=== PATIENT | male | born 1965 | race Caucasian/White ===

== ENCOUNTER 2021-01-05 16:32 | Emergency (ER) | payer SELFPAY ==
[2021-01-05 16:42] VITALS: BP 134/78; PULSE 89; RESP 21; TEMP 37.1; O2SAT 98; BMI 30.2
--- NOTE | 2021-01-05 16:42 | ECG_ITS ---
APPROVED REPORT Exam: Resting ECG HR:84 bpm ECG Measurements Heart Rate 84 AXES DE 152 P 62 QRSd 168 QRS -78 QT 464 T 83 QTc 548 Conclusion Electronic ventricular pacemaker Electronically signed by : Jama Logan MD 01/06/2021 09:46:19
--- NOTE | 2021-01-05 16:51 | XR_ITS ---
PROCEDURE INFORMATION: Exam: XR Chest Exam date and time: 01/05/2021 4:51 PM Age: 55 years old Clinical indication: Shortness of breath; Prior surgery; Additional info: Covid+ SOA TECHNIQUE: Imaging protocol: XR of the chest. Views: 1 view. COMPARISON: No relevant prior studies available. FINDINGS: Lungs: Streaky opacities in the bilateral midlung zones. Pleural spaces: Unremarkable. No pleural effusion. No pneumothorax. Heart/Mediastinum: Unremarkable. No cardiomegaly. Bones/joints: Unremarkable. IMPRESSION: Mild central pulmonary opacities compatible with infection
--- NOTE | 2021-01-05 17:04 | [facility].EDGENADL ---
ED Disposition Clinical Impression: Bronchitis due to COVID-19 virus Headache Qualifiers: Headache type: tension-type Headache chronicity pattern: acute headache Intractability: not intractable Qualified Code(s): G44.209 - Tension-type headache, unspecified, not intractable Disposition: Home, Self-Care Condition on Discharge: Good Instructions: DI for COVID-19 (Suspected or Confirmed ) Prescriptions: Albuterol Sulfate [Albuterol Sulfate Hfa] 2 puff IH Q4HP PRN #1 each PRN Reason: Wheezing Prescription Printed Doxycycline Hyclate [Doxycycline Hyclate 100mg Tablet] 100 mg PO Q12 #20 tab Prescription Printed Ibuprofen [Ibuprofen 800mg Tablet] 800 mg PO TIDP PRN #20 tab PRN Reason: Moderate Pain Prescription Printed Referrals: Preet Wilson MD [Primary Care Provider] - - Critical Care Critical Care Time: No Attestation: On 01/05/21, the high probability of a clinically significant, sudden or life threatening deterioration of the following system(s) required my full and direct attention, intervention and personal management. The time I documented below is in addition to time spent performing reported procedures but includes the following listed in this critical care notation. Medical Decision Making - Medical Records Medical records reviewed: Yes: I reviewed the patient's medical records. - Rip Inquiry Pt receiving controlled substance: No Vital Signs: 01/05/21 16:42 Temperature 98.7 F Temperature Source Oral Pulse Rate [Right Radial] 89 Respiratory Rate 21 Blood Pressure [Right Arm] 134/78 Blood Pressure Mean [Right Arm] 96 Blood Pressure Source [Right Arm] Automatic Cuff Blood Pressure Position [Right Arm] Sitting 02 Sat by Pulse Oximetry 98 Oxygen Delivery Method Room Air - Lab Data Lab Results 01/05/21 17:06: WBC 9.7, RBC 5.54, Hgb 17.6, Hct 49.7, MCV 89.7, MCH 31.8 H, MCHC 35.5 H, RDW 13.1, Plt Count 345, MPV 9.0, Neut % (Auto) 78.0, Lymph % (Auto) 14.9, [place] % (Auto) 5.1, Eos % (Auto) 0.3, Baso % (Auto) 1.7, Neut # (Auto) 7.5, Lymph # (Auto) 1.5, [place] # (Auto) 0.5, Eos # (Auto) 0.0, Baso # (Auto) 0.2 01/05/21 17:06: Sodium 134 L, Potassium 3.8, Chloride 98, Carbon Dioxide 25, Anion Gap 14.8, BUN 15, Creatinine 0.70, Estimated Creat Clear 155, Estimated GFR 117, Est GFR ( Amer) 141, Glucose 115 H, Calcium 8.2 L, Total Bilirubin 0.5, AST 55, ALT 31, Alkaline Phosphatase 105, Total Protein 6.8, Albumin 3.6, Globulin 3.2, Albumin/Globulin Ratio 1.1 Result diagrams: 01/05/21 17:06 01/05/21 17:06 Orders (Tests/Meds): ED MEDICATIONS Discontinued Medications Generic Name Dose Route Start Last Admin Trade Name Freq PRN Reason Stop Dose Admin Dexamethasone Sodium Phosphate 10 mg 01/05/21 16:57 01/05/21 17:16 Dexamethasone 4mg/Ml 5ml Mdv IV 01/05/21 16:58 10 mg ONCE ONE Administration Diphenhydramine HCl 25 mg 01/05/21 16:57 01/05/21 17:16 Diphenhydramine 50mg/Ml Vial IV 01/05/21 16:58 25 mg ONCE ONE Administration Sodium Chloride 1,000 mls @ 999 mls/hr 01/05/21 17:00 01/05/21 17:17 Sod Chlor 0.9% 1000ml Bag IV 01/05/21 18:00 999 mls/hr .Q1H1M ERIKA Administration Ketorolac Tromethamine 30 mg 01/05/21 16:57 01/05/21 17:16 Ketorolac 30mg/Ml Vial IV 01/05/21 16:58 30 mg ONCE ONE Administration - Radiology Data #1 Image(s): Chest Image Reviewed: Yes I reviewed the patient's radiology results, Yes I reviewed the patient's radiology image, Yes I have reviewed radiologist's interpretation IMPRESSION: Mild central pulmonary opacities compatible with infection - ECG Data Tracing #1 I reviewed this ECG and interpreted as documented below: Electronic ventricular pacemaker at a rate 84 bpm ECG initial impression date: 01/05/21 ECG initial impression time: 16:42 - Reevaluation(s) Time: 18:04 Reevaluation #1: On reevaluation, the patient is feeling better. There is no evidence of hypoxia or respiratory di
[2021-01-05 17:17] LABS: Basophils # 0.2 K/mm3 (0-0.2); Basophils % 1.7 % (0.1-2.0); Eosinophils % 0.3 % (0.1-12.0); Hematocrit 49.7 % (42.0-52.0); Hemoglobin 17.6 g/dL (14.1-18.0); Lymphocytes # 1.5 K/mm3 (0.7-4.5); Lymphocytes % 14.9 % (10-50); Mean Corpuscular HGB Conc 35.5 g/dL (31.8-35.4); Mean Corpuscular Hemoglobin 31.8 pg (27.0-31.2); Mean Corpuscular Volume 89.7 fl (80-94); Monocytes # 0.5 K/mm3 (0.1-1.0); Monocytes % 5.1 % (1.7-9.3); Neutrophils # 7.5 K/mm3 (1.8-7.8); Platelet Count 345 K/mm3 (142-424); Red Blood Count 5.54 M/mm3 (4.60-6.20); Red Cell Distribution Width 13.1 % (11.5-17.5); White Blood Count 9.7 K/mm3 (4.8-10.8)
[2021-01-05 17:19] LABS: Chloride 98 mmol/L (98-107); Potassium 3.8 mmoL/L (3.5-5.1); Sodium 134 mmol/L (136-145)
[2021-01-05 17:21] LABS: Blood Urea Nitrogen 15 mg/dl (9-20); Creatinine Clearance Estimated 155 mL/min (50-200); Estimated Glomerular Filt Rate 117 ml/min (>60); GFR (African American) 141 ML/MIN (>60)
[2021-01-05 17:22] LABS: Alanine Aminotransferase 31 U/L (12-78); Albumin Level 3.6 g/dl (3.5-5.0); Albumin/Globulin Ratio 1.1 (1.1-1.8); Alkaline Phosphatase 105 U/L (38-126); Anion Gap 14.8 mEq/L (5-15); Aspartate Amino Transferase 55 U/L (17-59); Bilirubin,Total 0.5 mg/dl (0.2-1.3); Calcium 8.2 mg/dl (8.4-10.2); Carbon Dioxide 25 mmol/L (22.0-30.0); Globulin 3.2 g/dL (1.3-3.2); Glucose 115 mg/dl (74-100); Total Protein,Serum 6.8 g/dl (6.3-8.2)
[2021-01-05 19:02] VITALS: BP 134/78; PULSE 89; RESP 21; TEMP 37.1; O2SAT 98
== END 2021-01-05 19:06 | disposition home or self-care (01) ==
PROVIDERS: Emergency Provider Emergency Medicine; PCP Family Medicine
DX: G44.209 Tension-type headache, unspecified, not intractable (principal); R05.9 Cough, unspecified; R06.02 Shortness of breath
CPT/HCPCS: 71045; 80053; 85025; 93005; 96375; 99283

== ENCOUNTER 2021-01-09 11:32 | Outpatient (CLI) | payer SELFPAY ==
[2021-01-09] VITALS (9 sets, daily range): BP systolic 118–132; BP diastolic 65–80; PULSE 59–83; RESP 18; TEMP 36.6–36.7; O2SAT 93–94
== END 2021-01-09 14:00 | disposition home or self-care (01) ==
LOC: COVID.OUT 11:33 → INF 12:03
PROVIDERS: PCP Family Medicine; Visit Provider Family Medicine
DX: U07.1 COVID-19 (principal); Z23 Encounter for immunization
CPT/HCPCS: 96365

== ENCOUNTER 2022-07-10 10:31 | Emergency (ER) | payer SELFPAY ==
[2022-07-10 10:54] VITALS: BP 123/76; PULSE 62; RESP 16; TEMP 36.7; O2SAT 97; BMI 32.5
--- NOTE | 2022-07-10 10:56 | XR_ITS ---
FINAL REPORT CLINICAL HISTORY: r thumb crush injury with exposed distal phalynx FINDINGS: RIGHT HAND Two views of the right hand were obtained. There is no acute fracture or dislocation. The joint spaces are intact. There is a soft tissue defect at the tip of the thumb. No foreign body is identified. IMPRESSION: No acute bony abnormality. Soft tissue defect at the tip of the thumb, no foreign body identified. Reviewed, Interpreted and Dictated by Alber Mcgee III, MD Transcribed by Veronica Ocampo Authenticated and . [facility]
--- NOTE | 2022-07-10 10:57 | [facility].EDGENADL ---
Discharge Plan Disposition Chief Complaint: Wound/Laceration Prescriptions Prescriptions: No Action ibuprofen 800 MG tablet 800 mg PO TIDP PRN (Reason: Moderate Pain) Qty: 20 0RF albuterol sulfate 8.5 GM HFA aerosol inhaler 2 puff IH Q4HP PRN (Reason: Wheezing) Qty: 1 0RF doxycycline hyclate 100 MG tablet,delayed release (DR/EC) 100 mg PO Q12 Qty: 20 0RF Referrals Follow up/Referrals: Morris Gann MD [Primary Care Provider] - See instructions Clinical Impressions Clinical Impression: Crush injury to thumb Instructions Patient Instructions: DI for Laceration Repair Discharge ED Provider: Farhat Payne General Adult HPI General Chief complaint: Wound/Laceration Stated complaint: RT thumb pain AO@home 07/10 Time Seen by Provider: 07/10/22 10:57 History of Present Illness HPI narrative: Patient is a 57-year-old male with no pertinent past medical history presents emergency department for crush injury of his right thumb. Onset was acute, approximately 1 hour ago. Patient had a sheet of concrete fell onto his right thumb. Last tetanus greater than 5 years ago. Denies other traumatic injuries. No other acute complaints at this time. Related Data Previous Rx's Medication Instructions Recorded albuterol sulfate 90 mcg/actuation 2 puff IH Q4HP PRN Wheezing #1 ea 01/05/21 aerosol inhaler doxycycline hyclate 100 mg 100 mg PO Q12 #20 tabs 01/05/21 tablet,delayed release ibuprofen 800 mg tablet 800 mg PO TIDP PRN Moderate Pain 01/05/21 #20 tabs Allergies Allergy/AdvReac Type Severity Reaction Status Date / Time No Known Allergies Allergy Verified 01/05/21 16:50 [facility] Disclaimer: The information contained in this section may have been updated after the patient was seen, as this information can be updated by other users. Social History Smoking Status: Never smoker alcohol intake: never current occupational status: employed Travel in the last 8 weeks: None ROS Obtained: Yes Systems reviewed as appropriate & no additional complaints except as documented Physical Exam General General appearance: alert and anxious Head Head exam: atraumatic and normocephalic Eye Eye exam: Present PERRL and EOMI ENT ENT exam: Present mucous membranes moist Neck Neck exam: Present normal inspection Chest Chest inspection: Present normal inspection and symmetric chest wall rise Respiratory Respiratory exam: Absent respiratory distress Cardiovascular Cardiovascular exam: Present regular rate and normal rhythm Abdominal Exam Abdominal exam: Present soft; Absent tenderness Extremities Exam Extremities exam: Present other (Right thumb has macerated laceration on the radial aspect distally with exposed subcutaneous tissue, tendons, phalanx adjacent to the paronychial fold. Range of motion MCP and PIP preserved.) Neurological Exam Neurological exam: Present alert Psychiatric Psychiatric exam: Present normal affect Skin Skin exam: Present warm and dry Medical Decision Making Rip Inquiry Pt receiving controlled substance: No Vital Signs: 07/10/22 10:54 07/10/22 11:01 Temperature 98.0 F Temperature Source Oral Pulse Rate 60 Pulse Rate [Left] 62 Respiratory Rate 16 18 Blood Pressure 136/74 Blood Pressure [Right Arm] 123/76 Blood Pressure Mean 86 Blood Pressure Mean [Right Arm] 91 02 Sat by Pulse Oximetry 97 96 Orders (Tests/Meds): ED MEDICATIONS Generic Name Dose Route Start Last Admin Trade Name Freq PRN Reason Stop Dose Admin Cefazolin Sodium 2 gm/ Sodium 100 mls @ 100 mls/hr 07/10/22 10:58 07/10/22 11:29 Chloride IV 07/10/22 11:57 100 mls/hr ONCE ONE Administration Discontinued Medications Generic Name Dose Route Start Last Admin Trade Name Freq PRN Reason Stop Dose Admin Acetaminophen 650 mg 07/10/22 11:01 07/10/22 11:28 Acetaminophen 325mg Tab PO 07/10/22 11:02 650 mg ONCE ONE Administration Ibuprofen
[2022-07-10 11:01] VITALS: BP 136/74; PULSE 60; RESP 18; O2SAT 96
--- NOTE | 2022-07-10 11:18 | PC.NURSE ---
called for xrays to be sent to [place]
--- NOTE | 2022-07-10 11:27 | PC.NURSE ---
called [facility] for pt transfer, they will call back
--- NOTE | 2022-07-10 11:33 | PC.NURSE ---
Dr Payne speaking to Dr Montes with [facility]
[2022-07-10 12:10] VITALS: BP 129/81; PULSE 80; RESP 16; TEMP 36.6
== END 2022-07-10 12:12 | disposition short-term general hospital (02) ==
PROVIDERS: Emergency Provider Emergency Medicine; PCP Family Medicine
DX: S67.02XA Crushing injury of left thumb, initial encounter (principal); W20.8XXA Other cause of strike by thrown, projected or falling object, initial encounter
CPT/HCPCS: 73120; 90714; 96365; 96372; 99285